=== PATIENT | male | born 1955 | race Caucasian/White ===

== ENCOUNTER 2016-08-03 14:26 | Outpatient (CLI) | payer BC | END 2016-08-03 18:11 | disposition home or self-care (01) | LOC: SLB 14:26 | PROVIDERS: ATTEND Internal Medicine | DX: E11.8 Type 2 diabetes mellitus with unspecified complications (principal); Z98.49 Cataract extraction status, unspecified eye | CPT/HCPCS: 36415; 80051-TC ==

== ENCOUNTER 2017-09-01 14:09 | Emergency (ER) | payer OTHER, MEDICAID ==
[~2017-09-01] VITALS: Ht 157.5 cm; Wt 102.1 kg
[2017-09-01 14:25] VITALS: BP_SYST 157
[2017-09-01 18:24] VITALS: BP_SYST 144
== END 2017-09-01 18:24 | disposition home or self-care (01) ==
LOC: SED 14:09
DX: S13.4XXA Sprain of ligaments of cervical spine, initial encounter (principal); V89.2XXA Person injured in unspecified motor-vehicle accident, traffic, initial encounter; Y93.89 Activity, other specified; Y92.488 Other paved roadways as the place of occurrence of the external cause; Y99.8 Other external cause status
CPT/HCPCS: 72050-TC; 72125-TC; 99284